=== PATIENT | male | born 1945 | race Caucasian/White ===

== ENCOUNTER 2022-07-23 06:31 | Outpatient (CLI) | payer OTHER | END 2022-07-23 19:09 | disposition home or self-care (01) | LOC: SNM 06:31 | PROVIDERS: ATTEND Urology Pediatric Urology | DX: C61 Malignant neoplasm of prostate (principal) | CPT/HCPCS: 78306; A9503 ==

== ENCOUNTER 2022-07-25 07:50 | Outpatient (CLI) | payer OTHER ==
[2022-07-25] MEDS ORDERED: DIATR MEGLU/DIATRIZ SOD 30 ML SOLUTION PO ONE (08:06)
== END 2022-07-25 19:32 | disposition home or self-care (01) ==
LOC: SCT 07:50
PROVIDERS: ATTEND Urology Pediatric Urology
DX: C61 Malignant neoplasm of prostate (principal); N40.0 Benign prostatic hyperplasia without lower urinary tract symptoms; K76.0 Fatty (change of) liver, not elsewhere classified; N28.1 Cyst of kidney, acquired; I70.0 Atherosclerosis of aorta; K43.9 Ventral hernia without obstruction or gangrene; M45.8 Ankylosing spondylitis sacral and sacrococcygeal region; I25.10 Atherosclerotic heart disease of native coronary artery without angina pectoris; J98.11 Atelectasis
CPT/HCPCS: 74176; 76376; Q9964